=== PATIENT | female | born 1950 | race Caucasian/White ===

== ENCOUNTER 2023-01-06 13:42 | Outpatient (CLI) | payer MEDICARE | END 2023-01-06 13:43 | disposition home or self-care (01) | LOC: BICRAD 13:42 | PROVIDERS: ATTEND Internal Medicine Rheumatology | DX: M54.16 Radiculopathy, lumbar region (principal); L40.50 Arthropathic psoriasis, unspecified; R26.2 Difficulty in walking, not elsewhere classified; R25.2 Cramp and spasm; M47.816 Spondylosis without myelopathy or radiculopathy, lumbar region | CPT/HCPCS: 72100 ==